=== PATIENT | female | born 1990 | race Caucasian/White ===

== ENCOUNTER → 2023-08-12 | Outpatient (CLI) | payer OTHER ==
--- NOTE | 2023-08-15 11:12 | CT ---
EXAMINATION TYPE: CT angio head CT DLP: 1133.40 mGycm, Automated exposure control for dose reduction was used. DATE OF EXAM: 08/12/2023 3:41 PM COMPARISON: . CLINICAL INDICATION:Female, 33 years old with history of Z82.49 family hx aneurysm; PHH, family hx of aneurysms TECHNIQUE: Noncontrast CT head was first performed with multiplanar reformats. CTA head = Axially acquired helical CT angiogram of the head was obtained with contrast utilizing 77 mL of Isovue-370 administered intravenously. Axial images are supplemented with 3D reconstructions wh ich were post-processed at an independent workstation. NASCET criteria used. FINDINGS: CT HEAD: Extra-axial spaces: No abnormal extra-axial fluid collections. Basilar cisterns are patent. Ventricular system: Within normal limits. Cerebral parenchyma: No increased attenuation to suggest acute intraparenchymal hemorrhage. The gra y-white matter interface appears maintained. No significant atrophy. White matter unremarkable by C T. Cerebellum: No acute abnormality. Mass effect: No evidence of mass effect or midline shift. Intracranial vasculature: Unremarkable Soft tissues: No acute or concerning abnormality. Visualized orbits: Orbital contents appear grossly intact. Calvarium/osseous structures: No evidence of calvarial fracture. Paranasal sinuses and mastoid air cells: Clear. The frontal sinuses are developmentally nonpneumatiz ed. MRI is more sensitive for detecting acute processes such as infarct, and may be considered if clinica lly warranted. CTA HEAD: Vertebral arteries: The vertebral arteries are patent. Vertebral artery dominance: Codominant Basilar artery: The basilar artery is intact. The basilar artery bifurcation is normal. No evidence o f aneurysm. Internal Carotid arteries: The cervical, petrous, cavernous and supraclinoid segments are normal. RYLIE: Right A1 segment appears relatively hypoplastic with the majority supply to the ACAs from the le ft side. There may be a common RYLIE for some length before bifurcating farther distally. No aneurysm i s seen. ACOM: Not clearly identified. No aneurysm is seen. MCA: Patent with no evidence of aneurysm. [employer]: Patent with no evidence of aneurysm. PCOM: Appears hypoplastic on the right. There may be a small left PCOM. Dural sinuses: Grossly patent. IMPRESSION: 1. No acute intracranial CT abnormality. 2. No evidence of intracranial aneurysm.
== END | disposition home or self-care (01) ==
LOC: RADCTMAIN 14:29 → MERGE 15:00
PROVIDERS: ATTEND Family Medicine
DX: I77.89 Other specified disorders of arteries and arterioles (principal); Z82.49 Family history of ischemic heart disease and other diseases of the circulatory system
CPT/HCPCS: 70496; Q9967